=== PATIENT | male | born 1990 | race African-American/Black ===

== ENCOUNTER 2021-12-14 08:38 | Outpatient (CLI) | payer OTHER ==
--- NOTE | 2021-12-14 16:55 | MRI Report ---
PROCEDURE: Knee RT W/O INDICATIONS: KNEE PAIN TECHNIQUE: Noncontrast sagittal PD fast spin echo and T2 fast spin echo with fat saturation, sagittal 3-D spoile d GE with fat saturation; coronal T1 spin echo and PD fast spin echo with fat saturation, and axial P D fast spin echo with fat saturation through the knee. COMPARISON: None. FINDINGS: Image quality: Excellent. Anterior cruciate ligament: Intact. Posterior cruciate ligament: Intact. Medial collateral ligament: Intact. Lateral collateral ligament: Intact. Medial meniscus: Intact. Lateral meniscus: Intact. Medial and lateral tendons: The semimembranosus tendon insertions appear intact. Visualized portion s of the pes anserinus tendons appear normal. The popliteus tendon appears intact. Iliotibial band appears normal. Anterior structures: Mild patellar tendinosis and distal quadriceps tendinosis. A mildly congenitall y shallow trochlear groove is seen with a prominent lateral patellar facet but no patellar subluxatio n. The tibial tubercle trochlear groove distance is within normal limits. No edema in the infrapatell ar fat pad. Bones: No acute trabecular bone injury or fracture. Medial femorotibial cartilage: Intact. Lateral femorotibial cartilage: Intact. Patellofemoral cartilage: Intact. Soft tissues: There is a physiologic amount of joint fluid. There is a trace medial popliteal cyst. The musculature surrounding the knee is normal in bulk. IMPRESSION: 1.No acute trabecular bone injury. The cruciate and collateral ligaments are intact. There is no meni scal tear or focal cartilage defect 2.Mild proximal patellar tendinosis and distal quadriceps tendinosis. 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 No significant edema in the infrapatellar fat pad. Reviewed by: Michael Bedoya MD on 12/14/2021 4:54 PM PDT Approved by: Michael Bedoya MD on 12/14/2021 4:54 PM PDT Station ID: [id number]
--- NOTE | 2021-12-14 16:56 | MRI Report ---
PROCEDURE: Knee LT W/O INDICATIONS: KNEE PAIN TECHNIQUE: Noncontrast sagittal PD fast spin echo and T2 fast spin echo with fat saturation, sagittal 3-D spoile d GE with fat saturation; coronal T1 spin echo and PD fast spin echo with fat saturation, and axial P D fast spin echo with fat saturation through the knee. COMPARISON: None. FINDINGS: Image quality: Excellent. Anterior cruciate ligament: Intact. Posterior cruciate ligament: Intact. Medial collateral ligament: Intact. Lateral collateral ligament: Intact. Medial meniscus: Intact. Lateral meniscus: Intact. Medial and lateral tendons: The semimembranosus tendon insertions appear intact. Visualized portion s of the pes anserinus tendons appear normal. The popliteus tendon appears intact. Iliotibial band appears normal. Anterior structures: Mild patellar tendinosis. Mild distal quadriceps tendinosis. A mildly congenital ly shallow trochlear groove is seen with a broad lateral patellar facet. No patellar subluxation. The tibial tubercle-trochlear groove distance is within normal limits. No edema in the infrapatellar fat pad. Bones: No acute trabecular bone injury or fracture. Medial femorotibial cartilage: Intact. Lateral femorotibial cartilage: Intact. Patellofemoral cartilage: Intact. Soft tissues: There is a physiologic amount of joint fluid. There is a trace medial popliteal cyst. The musculature surrounding the knee is normal in bulk. IMPRESSION: 1.No acute trabecular bone injury. The cruciate and collateral ligaments are intact. There is no meni scal tear or focal cartilage defect. 2.Mild proximal patellar tendinosis and distal quadriceps tendinosis. 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 No abnormal edema is see n in in the infrapatellar fat pad. Reviewed by: Michael Bedoya MD on 12/14/2021 4:54 PM PDT Approved by: Michael Bedoya MD on 12/14/2021 4:54 PM PDT Station ID: [id number]
== END 2021-12-14 08:39 | disposition home or self-care (01) ==
LOC: DI 08:38
DX: M25.562 Pain in left knee (principal); M67.864 Other specified disorders of tendon, left knee; M67.863 Other specified disorders of tendon, right knee